=== PATIENT | female | born 1935 | race Caucasian/White ===

== ENCOUNTER → 2017-11-20 | Outpatient (CLI) | payer OTHER ==
[~2017-11-20] MED LIST: ACET325T14 PO; ALPR0.25 NG; AMIO200T NG; ASPI-770 PO; DOCU-131 PO; EZET1TAB35 PO; FURO10VI37 IV; FURO20TA3 PO; IPRA3AMP INLINE; Initiate Coumadin Protocol MC; METO25TA35 PO; ONDA4VIA4 IVPush; OXYC5TAB3 PO; PANT40TA3 PO; POTA10TA5 PO; TRIA1CAP3 PO; VERA240T86 PO; WARF2.5T73 PO; WARF2TAB7 PO; WARF5TAB7 PO
== END | disposition home or self-care (01) ==
LOC: CFH 12:52
PROVIDERS: ATTEND Nurse Practitioner
DX: J47.9 Bronchiectasis, uncomplicated (principal); J98.4 Other disorders of lung
CPT/HCPCS: 71250

== ENCOUNTER → 2019-01-27 | Outpatient (CLI) | payer MEDICARE, OTHER ==
[~2019-01-27] MED LIST changes: -ASPI-770 PO; +ASPI81TA59 PO; -IPRA3AMP INLINE; +IPRA3AMP30 INLINE; -ONDA4VIA4 IVPush; +ONDA4VIA8 IVPush; +WARF-36 PO; +WARF2.5T32 PO; -WARF2.5T73 PO; -WARF2TAB7 PO; +WARF2TAB99 PO; -WARF5TAB7 PO
== END | disposition home or self-care (01) ==
LOC: CFH 09:40
PROVIDERS: ATTEND Internal Medicine Cardiovascular Disease
DX: I08.3 Combined rheumatic disorders of mitral, aortic and tricuspid valves (principal); I11.9 Hypertensive heart disease without heart failure; E78.5 Hyperlipidemia, unspecified; Z95.2 Presence of prosthetic heart valve
CPT/HCPCS: 93306

== ENCOUNTER → 2019-12-29 | Outpatient (CLI) | payer OTHER ==
[~2019-12-29] MED LIST changes: +ONDA4VIA60 IVPush; -ONDA4VIA8 IVPush; +VERA240T10 PO; -VERA240T86 PO
== END | disposition home or self-care (01) ==
LOC: CFH 10:00
PROVIDERS: ATTEND Internal Medicine Cardiovascular Disease
DX: I36.1 Nonrheumatic tricuspid (valve) insufficiency (principal); E78.5 Hyperlipidemia, unspecified; I10 Essential (primary) hypertension; Z95.4 Presence of other heart-valve replacement
CPT/HCPCS: 93306

== ENCOUNTER → 2020-11-29 | Outpatient (CLI) | payer OTHER | END | disposition home or self-care (01) | LOC: CFH 12:56 | PROVIDERS: ATTEND Internal Medicine Cardiovascular Disease | DX: I08.8 Other rheumatic multiple valve diseases (principal) | CPT/HCPCS: 93306 ==